=== PATIENT | male | born 2000 | race Caucasian/White ===

== ENCOUNTER 2022-06-07 06:07 | Emergency (ER) | payer BC ==
[~2022-06-07] VITALS: Ht 190.5 cm; Wt 88.6 kg
[2022-06-07 06:20] VITALS: TEMP 97.7
[2022-06-07 06:39] LABS: BASO # 0.1 K/mm3 (0.0-0.2); EOS # 0.2 K/mm3 (0.0-0.7); EOS % 2.6 % (0.0-4.0); GRAN # 2.8 K/mm3 (1.4-6.5); GRAN % 48.4 % (42.2-75.2); HEMATOCRIT 45.2 % (36.0-47.0); HEMOGLOBIN 15.5 g/dl (12.5-16.1); LYMPH # 2.1 K/mm3 (1.2-3.4); LYMPH % 37.2 % (20.0-51.0); MEAN CELL VOLUME 84 fl (80.0-95.0); MEAN CORPUSCULAR HEMOGLOBIN 29 pg (26-32); MEAN CORPUSCULAR HGB CONC 34 g/dl (33.0-37.0); MEAN PLATELET VOLUME 9.2 fl (7.4-10.4); MONO # 0.6 K/mm3 (0.1-0.6); MONO % 10.6 % (1.7-9.3); PLATELET COUNT 281 K/mm3 (130-400); RED BLOOD COUNT 5.38 M/mm3 (4.20-5.60); REDCELL DISTRIBUTION WIDTH-CV 12.1 % (11.5-14.5)
[2022-06-07 06:58] LABS: ALBUMIN 4.5 gm/dL (3.5-5.0); BILIRUBIN,TOTAL 1.2 mg/dL (0.2-1.2); CALCIUM 9.7 mg/dL (8.4-10.2); CREATININE, serum 1.27 mg/dL (0.72-1.25); POTASSIUM 3.1 mmol/L (3.5-4.5); TOTAL PROTEIN 7.6 gm/dL (6.2-8.1)
[2022-06-07 08:03] LABS: COLLECTION METHOD CLEAN CATCH
[2022-06-07 08:17] LABS: URINE APPEARANCE Clear (CLEAR/HAZY); URINE BLOOD Negative (NEGATIVE); URINE COLOR Yellow (YELLOW); URINE GLUCOSE Negative (NEGATIVE); URINE KETONE Negative (NEGATIVE); URINE NITRATE Negative (NEGATIVE); URINE PROTEIN(semi-quant) Negative (NEGATIVE); URINE UROBILINOGEN 0.2 E.U/dL (0.2-1.0)
[2022-06-07 08:22] LABS: SQUAMOUS EPITHELIAL 0-2 /hpf (0-10); URINE BACTERIA None Seen /hpf (NONE SEEN); URINE RBC None Seen /hpf (0-2)
[2022-06-07 08:30] VITALS: BP 137/91; PULSE 92
[2022-06-07] MEDS ORDERED: ZOFRAN ODT4 MG PO (09:20)
[2022-06-07] MEDS ORDERED: NORCO 325 MG-51 TAB PO (09:20)
== END 2022-06-07 09:41 | disposition home or self-care (01) ==
LOC: COL.ER 06:07
PROVIDERS: Emergency Medicine
DX: R10.30 Lower abdominal pain, unspecified (principal)
CPT/HCPCS: J1790; J1885; J2270; J2405; J7030; Q9967